=== PATIENT | female | born 1930 | race Caucasian/White ===

== ENCOUNTER 2016-08-28 16:40 | Inpatient (IN) | payer OTHER ==
[~2016-08-28] VITALS: Ht 142.2 cm; Wt 46.2 kg
[~2016-08-28 16:40] MED LIST: ADVAIR HFA120 INHALA IH; ALBUTEROL2.5 MG/3 M IH; ASPIRIN81 M2 PO; ATIVAN0.5 MG PO; AZITHROMYCIN250 MG1 PO; AZITHROMYCIN500 M1 PO; Advair HFA 45/21 IH; Aspirin E.C. PO; CEFTIN250 MG PO; COMBIVENT200 INHALA IH; Ceftin PO; DUONEB 2.5-0.5 M3 ML IH; FERROUS SULFAT325 MG PO; HYDROCHLOROTHIA25 MG PO; Hydrodiuril,Oretic,E PO; LIPITOR10 MG PO; LISINOPRIL5 MG PO; Lanoxin,Digitek PO; Lasix PO; MUCINEX600 MG PO; NICOTINE PATCH1 EAC2 TD; NO HOME MEDS; PREDNISONE10 MG PO; PREDNISONE20 MG PO; PREDNISONE50 MG PO; PRINIVIL10 MG PO; PROAIR HFA8.5 GM IH; PROVENTIL HFA6.7 GM IH; PROVENTIL,2.5 MG/0.5 IH; PROVENTIL,2.5 MG/3 M IH; SPIRIVA1 INHALATI IH; Singulair PO; TAMIFLU75 MG PO; VENTOLIN HFA18 GM IH; Zestril,Prinivil PO; Zocor PO; predniSONE PO
[2016-08-28 17:32] LABS: HEMATOCRIT 33.2 % (36.0-46.0); MCH 29.4 PG (29.0-34.0); MCHC 35.8 G/DL (30.0-36.0); RBC DIS.WIDTH-CV 17.6 % (11.8-14.6); RBC DIS.WIDTH-SD 52.4 % (39-53); RED BLOOD COUNT 4.05 M/uL (3.80-5.20); WHITE BLOOD COUNT 6.6 K/uL (4.1-10.2)
[2016-08-28 17:42] LABS: CHLORIDE 101 mEq/L (99-109); POTASSIUM 3.9 mEq/L (3.7-5.4); SODIUM 135 mEq/L (136-147)
[2016-08-28 17:44] LABS: GLUCOSE 201 mg/dL (70-99)
[2016-08-28 17:45] LABS: ANION GAP 12 MEQ/L (2-14)
[2016-08-28 17:47] LABS: ALKALINE PHOSPHATASE 493 IU/L (3-129)
[2016-08-28 17:48] LABS: GFR ESTIMATE (CALCULATED) > 59 mL/min/
[2016-08-28 17:49] LABS: UREA NITROGEN (BUN) 13 mg/dL (9-23)
[2016-08-28 17:51] LABS: LIPASE 7 U/L (1.0-51.0)
[2016-08-28 18:16] LABS: INTER. NORMALIZED RATIO 1.1; PROTHROMBIN TIME 10.7 (9.2-11.2); PTT 30.4 (25-32)
[2016-08-28 18:18] LABS: HEMATOLOGY COMMENT 1 SN; MEAN PLAT.VOLUME 11.7 uM^3 (9.5-12.4); PLAT.SUFFICIENCY ADEQUATE; PLATELET COUNT 288 K/uL (156-360)
[2016-08-28 18:21] LABS: DIRECT BILIRUBIN 17.5 mg/dL (0.0-0.3); SAMPLE HEMOLYSIS CHECK 0; SAMPLE ICTERIC CHECK 4; SAMPLE LIPEMIA CHECK 0
[2016-08-28] MEDS ORDERED: ATARAX,VISTARIL25 MG PO (20:36)
[2016-08-28] MEDS ORDERED: NORVASC5 MG PO (20:37)
[2016-08-29 01:06] VITALS: BP 138/59
[2016-08-29 07:15] LABS: HEMATOCRIT 30.6 % (36.0-46.0); MCH 28.8 PG (29.0-34.0); MCV 82.5 FL (83-99); MEAN PLAT.VOLUME 11.3 uM^3 (9.5-12.4); PLATELET COUNT 256 K/uL (156-360); RBC DIS.WIDTH-CV 17.7 % (11.8-14.6); RED BLOOD COUNT 3.71 M/uL (3.80-5.20); WHITE BLOOD COUNT 6.2 K/uL (4.1-10.2)
[2016-08-29 07:37] VITALS: BP 142/54
[2016-08-29 07:38] LABS: ALKALINE PHOSPHATASE 420 IU/L (3-129); ANION GAP 10 MEQ/L (2-14); CHLORIDE 105 MEQ/L (99-109); GFR ESTIMATE (CALCULATED) > 59 mL/min/; POTASSIUM 3.7 MEQ/L (3.7-5.4); SAMPLE HEMOLYSIS CHECK 0; SAMPLE ICTERIC CHECK 3; SAMPLE LIPEMIA CHECK 0; SODIUM 136 MEQ/L (136-147); TOTAL BILIRUBIN 22.1 MG/DL (0.0-1.0); UREA NITROGEN (BUN) 11 mg/dL (9-23)
[2016-08-29 07:48] LABS: GLUCOSE 100 mg/dL (70-99)
[2016-08-29 12:03] LABS: POINT-OF-CARE METER ID UU14188625
[2016-08-29 16:26] VITALS: BP 171/65
[2016-08-29 16:32] LABS: POINT-OF-CARE METER ID UU14188625
[2016-08-29 19:48] VITALS: BP 129/58
[2016-08-29 23:59] LABS: POINT-OF-CARE METER ID UU14188625
[2016-08-30] VITALS: BP 149/52; BP 149/525
[2016-08-30 04:47] VITALS: BP 120/65
[2016-08-30 07:39] LABS: BASOPHIL COUNT 0.1 K/uL (0-0.1); EOSINOPHIL (%) 3.2 % (0-5); EOSINOPHIL COUNT 0.2 K/uL (0-0.3); HEMATOCRIT 29.3 % (36.0-46.0); IMMATURE GRANULOCYTE (%) 0.3 % (0.0-0.7); INSTRUMENT ABS NEUTROPHIL CT 3.6 K/uL; LYMPHOCYTE COUNT 1.6 K/uL (1.0-2.8); MCH 28.8 PG (29.0-34.0); MCHC 34.1 G/DL (30.0-36.0); MCV 84.4 FL (83-99); MONOCYTE (%) 8.7 % (3-12); MONOCYTE COUNT 0.5 K/uL (0-0.8); NEUTROPHIL (%) 59.8 % (45-76); NEUTROPHIL COUNT 3.6 K/uL (1.8-6.4); PLATELET COUNT 263 K/uL (156-360); RBC DIS.WIDTH-CV 18.3 % (11.8-14.6); RBC DIS.WIDTH-SD 55.5 % (39-53); RED BLOOD COUNT 3.47 M/uL (3.80-5.20)
[2016-08-30 07:40] VITALS: BP 129/79
[2016-08-30 08:17] LABS: ALKALINE PHOSPHATASE 375 IU/L (3-129); ANION GAP 8 MEQ/L (2-14); CHLORIDE 105 MEQ/L (99-109); GFR ESTIMATE (CALCULATED) > 59 mL/min/; GLUCOSE 88 mg/dL (70-99); SAMPLE HEMOLYSIS CHECK 0; SAMPLE ICTERIC CHECK 3; SAMPLE LIPEMIA CHECK 0; SODIUM 136 MEQ/L (136-147); UREA NITROGEN (BUN) 14 mg/dL (9-23)
[2016-08-30 11:56] LABS: POINT-OF-CARE METER ID UU14188625
[2016-08-30 15:40] VITALS: BP 135/63
[2016-08-30 23:29] VITALS: BP 145/62
[2016-08-31 07:31] LABS: POINT-OF-CARE METER ID UU14174225
[2016-08-31 07:32] VITALS: BP 138/63
[2016-08-31 12:11] LABS: POINT-OF-CARE METER ID UU14188625
[2016-08-31 16:05] VITALS: BP 146/59
[2016-08-31 16:16] LABS: POINT-OF-CARE METER ID UU14188625
[2016-09-01 00:02] VITALS: BP 147/63
[2016-09-01 07:08] LABS: HEMATOCRIT 26.9 % (36.0-46.0); MCH 29.2 PG (29.0-34.0); MCHC 35.3 G/DL (30.0-36.0); MCV 82.8 FL (83-99); MEAN PLAT.VOLUME 11.6 uM^3 (9.5-12.4); PLATELET COUNT 234 K/uL (156-360); RBC DIS.WIDTH-CV 18.1 % (11.8-14.6); RBC DIS.WIDTH-SD 54.2 % (39-53); RED BLOOD COUNT 3.25 M/uL (3.80-5.20); WHITE BLOOD COUNT 5.4 K/uL (4.1-10.2)
[2016-09-01 07:35] LABS: ALKALINE PHOSPHATASE 308 IU/L (3-129); ANION GAP 9 MEQ/L (2-14); CHLORIDE 106 MEQ/L (99-109); GFR ESTIMATE (CALCULATED) > 59 mL/min/; GLUCOSE 100 mg/dL (70-99); POTASSIUM 3.6 MEQ/L (3.7-5.4); SAMPLE HEMOLYSIS CHECK 0; SAMPLE ICTERIC CHECK 3; SAMPLE LIPEMIA CHECK 0; SODIUM 137 MEQ/L (136-147); TOTAL BILIRUBIN 19.5 MG/DL (0.0-1.0); UREA NITROGEN (BUN) 8 mg/dL (9-23)
[2016-09-01 08:08] VITALS: BP 124/60
[2016-09-01 11:46] VITALS: BP 131/56
[2016-09-01 18:07] VITALS: BP 172/74
[2016-09-02 00:10] VITALS: BP 134/63
[2016-09-02 07:56] VITALS: BP 152/68
[2016-09-02 12:08] VITALS: BP 156/68
[2016-09-02 13:57] LABS: POINT-OF-CARE METER ID UU14174225
[2016-09-02 17:37] VITALS: BP 143/56
[2016-09-03] VITALS: BP 139/64
[2016-09-03 08:40] LABS: POINT-OF-CARE METER ID UU14174225
[2016-09-03 09:53] LABS: ALKALINE PHOSPHATASE 356 IU/L (3-129); DIRECT BILIRUBIN 9.5 mg/dL (0.0-0.3); TOTAL BILIRUBIN 17.4 MG/DL (0.0-1.0)
[2016-09-03 10:50] VITALS: BP 156/68
[2016-09-03 10:59] LABS: POINT-OF-CARE METER ID UU14188625
[2016-09-03 12:15] LABS: POINT-OF-CARE METER ID UU14188625
[2016-09-03 16:59] LABS: POINT-OF-CARE METER ID UU14174225
[2016-09-03 20:00] VITALS: BP 149/60
[2016-09-03 21:41] LABS: POINT-OF-CARE METER ID UU14174225
[2016-09-04 01:05] VITALS: BP 148/62
[2016-09-04 08:00] VITALS: BP 150/62
[2016-09-04 12:41] LABS: POINT-OF-CARE METER ID UU14188625
[2016-09-04 15:18] VITALS: BP 134/64
[2016-09-04 16:20] LABS: POINT-OF-CARE METER ID UU14174225
[2016-09-04 20:50] LABS: POINT-OF-CARE METER ID UU14188625
[2016-09-05] VITALS: BP 152/66
[2016-09-05 08:08] VITALS: BP 131/79
[2016-09-05 11:07] VITALS: BP 140/60
[2016-09-05] MEDS ORDERED: AMOX TR-K CLV1 EAC3 PO (13:26)
[2016-09-05] MEDS ORDERED: NOVOLOG PE100 UNITS/ SC (13:27)
[2016-09-05 15:35] VITALS: BP 156/67
== END 2016-09-05 16:45 | DRG 445 ==
LOC: EME 16:40 → 5SOUTH 22:15 → EDOF 22:15 → 5SOUTH 08-29 00:42
PROVIDERS: Emergency Medicine; Hospitalist; Internal Medicine; Internal Medicine Gastroenterology; Nurse Practitioner Adult Health
PROC: 0FJB8ZZ Inspection of Hepatobiliary Duct, Via Natural or Artificial Opening Endoscopic (ICD-10-PCS; principal; 2016-09-01)
PROC: 0F9930Z Drainage of Common Bile Duct with Drainage Device, Percutaneous Approach (ICD-10-PCS; 2016-09-02)
DX: K83.1 Obstruction of bile duct (principal); R64 Cachexia; C22.1 Intrahepatic bile duct carcinoma; J44.9 Chronic obstructive pulmonary disease, unspecified; E87.1 Hypo-osmolality and hyponatremia; F17.210 Nicotine dependence, cigarettes, uncomplicated; J45.909 Unspecified asthma, uncomplicated; I10 Essential (primary) hypertension; E11.9 Type 2 diabetes mellitus without complications; I71.4 Abdominal aortic aneurysm, without rupture; Z68.22 Body mass index [BMI] 22.0-22.9, adult; L29.8 Other pruritus; I25.10 Atherosclerotic heart disease of native coronary artery without angina pectoris
CPT/HCPCS: 36415; 47534; 74176; 74328; 80048; 80053; 80074 GA; 80076; 82140; 82248; 82948; 83690; 85025; 85027; 85610; 85730; 87040; 87081; 87522 90; 94640; 94640 76; 94760; 94799; 99202; 99281; 99285; C1729; C1766; C1769; J0330; J1100; J1200; J1644; J1815; J2405; J2543; J3010; J7030; J7050; Q0177; S0028